=== PATIENT | female | born 1975 | race African-American/Black ===

== ENCOUNTER 2017-06-09 20:37 | Emergency (ER) | payer OTHER ==
[~2017-06-09] VITALS: Ht 160 cm; Wt 97.0 kg
[~2017-06-09 20:37] MED LIST: ADVIL200 M1 OR; AMOXICILLIN500 MG OR; AMOXICILLIN500 MG PO; ATENOLOL25 MG PO; BACTRIM DS1 TAB OR; BIAXIN XL PAC500 MG PO; CENTRUM OR; CIPRO500 MG PO; ENALAPRIL5 MG OR; ERY-TAB333 MG OR; FERROUS GLUC OR; FLEXERIL OR; IRON325 MG OR; LORTAB 10 OR; LORTAB 10 PO; LORTAB 5 OR; LORTAB5 PO; MEDDOSEPAK OR; MOTRIN IB200 MG OR; MOTRIN400 MG OR; NAPROSYN500 MG PO; NEXIUM40 M1 OR; NO MEDS; No Meds; PREMARIN1.25 MG OR; PREVACID30 M1 PO; PREVPAC PO; ULTRAM50 MG OR; VASOTEC5 MG OR; ZOLOFT50 MG OR
[2017-06-09] MEDS ORDERED: AMLODIPINE10 MG PO (20:59)
[2017-06-09] MEDS ORDERED: RANITIDINE75 M3 PO (21:00)
[2017-06-09] MEDS ORDERED: NAPROSYN500 MG PO (22:35)
[2017-06-09 22:45] VITALS: BP 158/86
== END 2017-06-09 22:45 | disposition home or self-care (01) | DRG 563 ==
LOC: ED 20:37
DX: S93.504A Unspecified sprain of right lesser toe(s), initial encounter (principal); I10 Essential (primary) hypertension; W22.8XXA Striking against or struck by other objects, initial encounter; Y92.009 Unspecified place in unspecified non-institutional (private) residence as the place of occurrence of the external cause

== ENCOUNTER 2021-07-20 08:27 | Emergency (ER) | payer OTHER ==
[~2021-07-20] VITALS: Ht 160 cm; Wt 100.0 kg
[~2021-07-20 08:27] MED LIST changes: +AMLODIPINE10 MG PO; +RANITIDINE75 M3 PO
[2021-07-20] MEDS ORDERED: SLOW RELEASE IR50 MG PO (08:42)
[2021-07-20] MEDS ORDERED: LISINOPRIL20 MG PO (08:43)
[2021-07-20 11:19] LABS: HEMATOCRIT 40.4 % (37.0-47.0); HEMOGLOBIN 12.3 g/dl (12.0-16.0); IMMATURE GRANULOCYTES 0.2 % (0.0-5.0); MEAN CELL VOLUME 91.6 fL CALC (80.0-100.0); MEAN CORPUSCULAR HGB 27.9 pG CALC (26.0-32.0); MEAN CORPUSCULAR HGB CONC 30.4 g/dL CAL (32.0-36.0); NEUT# 2.69 thou/uL (2.00-7.15); RED BLOOD COUNT 4.41 mill/uL (4.20-5.60)
[2021-07-20 12:29] LABS: ALBUMIN 4.1 g/dL (3.2-5.0); ALKALINE PHOSPHATASE 74 u/l (38-126); ANION GAP 10 (6-22 (CALC)); BILIRUBIN, TOTAL 0.7 mg/dL (0.0-1.4); BUN 8 mg/dL (7-17); BUN/CREATININE RATIO 12 (12-20 (CALC)); CARBON DIOXIDE 24 mmol/l (22-30); CHLORIDE 107 mmol/l (95-108); CREATININE 0.7 mg/dL (0.5-1.0); GFR > 60 ML/MIN (>=60 (CALC)); GFR FOR AFR.AMER. > 60 ML/MIN (>=60 (CALC)); POTASSIUM 4.2 mmol/l (3.5-5.1); SGOT/AST 16 u/l (14-36); SODIUM 137 mmol/l (137-146); TOTAL PROTEIN 8.1 g/dL (6.3-8.2)
[2021-07-20] MEDS ORDERED: NORVASC PO (14:20)
[2021-07-20 14:45] VITALS: BP 170/82
== END 2021-07-20 14:50 | disposition home or self-care (01) ==
LOC: ED 08:27
PROVIDERS: Emergency Medicine
DX: I10 Essential (primary) hypertension (principal)

== ENCOUNTER 2022-07-12 07:40 | Emergency (ER) | payer OTHER ==
[~2022-07-12] VITALS: Ht 160 cm; Wt 95.0 kg
[~2022-07-12 07:40] MED LIST changes: +LISINOPRIL20 MG PO; +NORVASC PO; +SLOW RELEASE IR50 MG PO
[2022-07-12 07:47] VITALS: BP 156/97
[2022-07-12 08:01] VITALS: BP 153/102
[2022-07-12 08:27] VITALS: BP 173/102
[2022-07-12 08:31] VITALS: BP 166/100
[2022-07-12 08:35] LABS: ALBUMIN 4.1 g/dL (3.2-5.0); ALKALINE PHOSPHATASE 67 u/l (38-126); ANION GAP 14 (6-22 (CALC)); BILIRUBIN, TOTAL 0.3 mg/dL (0.0-1.4); BUN 12 mg/dL (7-17); BUN/CREATININE RATIO 19 (12-20 (CALC)); CARBON DIOXIDE 21 mmol/l (22-30); CHLORIDE 107 mmol/l (95-108); CREATININE 0.6 mg/dL (0.5-1.0); GFR FOR AFR.AMER. > 60 ML/MIN (>=60 (CALC)); GFR OTHER RACES > 60 ML/MIN (>=60 (CALC)); POTASSIUM 3.9 mmol/l (3.5-5.1); SGOT/AST 15 u/l (14-36); SODIUM 137 mmol/l (137-146); TOTAL PROTEIN 7.8 g/dL (6.3-8.2)
[2022-07-12 08:36] LABS: HEMATOCRIT 34.9 % (37.0-47.0); HEMOGLOBIN 11.1 g/dl (12.0-16.0); IMMATURE GRANULOCYTES 0.2 % (0.0-5.0); MEAN CORPUSCULAR HGB 27.1 pG CALC (26.0-32.0); MEAN CORPUSCULAR HGB CONC 31.8 g/dL CAL (32.0-36.0); NEUT# 2.46 thou/uL (2.00-7.15); RED BLOOD COUNT 4.1 mill/uL (4.20-5.60); RED CELL DISTRI WIDTH 14.9 % (11.5-15.5)
[2022-07-12 08:40] LABS: MEAN CELL VOLUME 85.1 fL CALC (80.0-100.0)
[2022-07-12 08:44] LABS: URINE BILIRUBIN - DIPSTICK NEGATIVE (NEGATIVE); URINE BLOOD DIPSTICK TRACE-INTACT (NEGATIVE); URINE COLOR YELLOW; URINE GLUCOSE - DIPSTICK NEGATIVE (NEGATIVE); URINE KETONE NEGATIVE (NEGATIVE); URINE PROTEIN - DIPSTICK NEGATIVE (NEG-TRACE); URINE UROBILINOGEN - DIPSTICK 0.2 E.U./dL (0.2)
[2022-07-12 08:45] LABS: URINE BACTERIA FEW hpf; URINE EPITHELIAL CELLS FEW EPI/hpf (0-FEW); URINE LEUK ESTERASE SMALL (NEGATIVE); URINE NITRITE - DIPSTICK NEGATIVE (Negative)
[2022-07-12 09:01] VITALS: BP 145/89
[2022-07-12 09:31] VITALS: BP 141/86
[2022-07-12] MEDS ORDERED: PROTONIX20 M1 PO (09:49)
[2022-07-12] MEDS ORDERED: CEPHALEXIN500 MG PO (09:49)
== END 2022-07-12 10:32 | disposition home or self-care (01) ==
LOC: ED 07:40
PROVIDERS: Family Medicine
DX: N39.0 Urinary tract infection, site not specified (principal); I10 Essential (primary) hypertension; E66.9 Obesity, unspecified; R10.13 Epigastric pain